=== PATIENT | male | born 1980 | race Caucasian/White ===

== ENCOUNTER → 2017-01-26 13:45 | Outpatient (CLI) | payer MEDICAID ==
[2014-10-21 03:35] VITALS: BMI 32.1
[~2017-01-26 13:45] MED LIST: AMBIEN10 MG PO; DILAUDID4 MG PO; ECOTRIN325 MG PO; ZOLOFT50 MG PO
[2017-01-26 14:12] LABS: WBC 9.7 10x3/uL (4.8-10.8)
[2017-01-26 15:54] LABS: ERYTHROCYTE SEDIMENTATION RATE 15 mm/hr (0-15)
== END | disposition home or self-care (01) ==
LOC: D.LABREF 13:45
PROVIDERS: Orthopaedic Surgery
DX: T81.4XXA Infection following a procedure, initial encounter (principal); L02.818 Cutaneous abscess of other sites

== ENCOUNTER → 2017-02-21 20:20 | Outpatient (CLI) | payer MEDICAID ==
[2014-10-21 03:35] VITALS: BMI 32.1
[2017-02-21 22:44] LABS: BASOPHILS 0.6 % (0-2); EOSINOPHILS 5.3 % (0-7); HEMATOCRIT 44.1 % (42.0-54.0); HEMOGLOBIN 14.5 g/dL (13.5-17.5); IMMATURE GRANULOCYTES 0.1 % (0-5); LYMPHOCYTES 34.5 % (15-50); MCH 34.2 pg (26.0-34.0); MCHC 32.9 g/dL (31.0-37.0); MONOCYTES 8.6 % (2-11); NEUTROPHILS 50.9 % (40-80); RBC 4.24 10x6/uL (4.20-6.10); RDW 12.8 % (11.5-14.5); WBC 9.5 10x3/uL (4.8-10.8)
[2017-02-21 22:47] LABS: PLATELET COUNT 213 10x3/uL (130-400)
[2017-02-21 22:57] LABS: ALBUMIN 3.4 g/dL (3.4-5.0); BILIRUBIN - DIRECT 0.11 mg/dL (0.00-0.30); BILIRUBIN - INDIRECT 0.33 mg/dL (0.00-1.00); BILIRUBIN - TOTAL 0.44 mg/dL (0.2-1.3); CREATININE - SERUM 0.7 mg/dL (0.6-1.3); PROTEIN - SERUM 6.7 g/dL (6.4-8.2)
== END | disposition home or self-care (01) ==
LOC: D.LABREF 20:20
PROVIDERS: Internal Medicine Infectious Disease
DX: Z79.2 Long term (current) use of antibiotics (principal)

== ENCOUNTER → 2017-02-28 14:44 | Outpatient (CLI) | payer MEDICAID ==
[2014-10-21 03:35] VITALS: BMI 32.1
[2017-02-28 15:07] LABS: BASOPHILS 0.6 % (0-2); EOSINOPHILS 3.9 % (0-7); HEMATOCRIT 44.1 % (42.0-54.0); HEMOGLOBIN 15.1 g/dL (13.5-17.5); IMMATURE GRANULOCYTES 0.2 % (0-5); LYMPHOCYTES 29.4 % (15-50); MCH 34.2 pg (26.0-34.0); MCHC 34.2 g/dL (31.0-37.0); MEAN PLATELET VOLUME 10.9 fL (7.4-10.4); MONOCYTES 7.6 % (2-11); NEUTROPHILS 58.3 % (40-80); PLATELET COUNT 221 10x3/uL (130-400); RBC 4.41 10x6/uL (4.20-6.10); RDW 12.4 % (11.5-14.5); WBC 12.5 10x3/uL (4.8-10.8)
[2017-02-28 15:31] LABS: ALBUMIN 3.8 g/dL (3.4-5.0); ALKALINE PHOSPHATASE 90 U/L (46-116); ALT (SGPT) 35 U/L (10-68); BILIRUBIN - INDIRECT 0.59 mg/dL (0.00-1.00); BILIRUBIN - TOTAL 0.79 mg/dL (0.2-1.3); CALC OSMOLALITY 274 mosm/kg (275-300); CALCIUM 9.5 mg/dL (8.5-10.1); CARBON DIOXIDE 27.8 mmol/L (21.0-32.0); CHLORIDE - SERUM 102 mmol/L (98-107); CREATININE - SERUM 0.7 mg/dL (0.6-1.3); PROTEIN - SERUM 7.4 g/dL (6.4-8.2); SODIUM 140 mmol/L (136-145); UREA NITROGEN 8 mg/dL (7-18); eGFR NON AFRICAN AMERICAN > 90 mL/min (90-120)
[2017-02-28 15:34] LABS: GLUCOSE 55 mg/dL (74-106)
== END | disposition home or self-care (01) ==
LOC: D.LABREF 14:44
PROVIDERS: Internal Medicine Infectious Disease
DX: Z51.81 Encounter for therapeutic drug level monitoring (principal); Z79.2 Long term (current) use of antibiotics; L03.119 Cellulitis of unspecified part of limb

== ENCOUNTER → 2017-03-07 13:00 | Outpatient (CLI) | payer MEDICAID ==
[2014-10-21 03:35] VITALS: BMI 32.1
[2017-03-07 14:01] LABS: BASOPHILS 0.5 % (0-2); EOSINOPHILS 6.2 % (0-7); HEMATOCRIT 44.3 % (42.0-54.0); IMMATURE GRANULOCYTES 0.2 % (0-5); LYMPHOCYTES 37.4 % (15-50); MCH 34.2 pg (26.0-34.0); MCHC 33.9 g/dL (31.0-37.0); MCV 100.9 fL (80.0-100.0); MEAN PLATELET VOLUME 11.3 fL (7.4-10.4); MONOCYTES 7.9 % (2-11); NEUTROPHILS 47.8 % (40-80); PLATELET COUNT 246 10x3/uL (130-400); RBC 4.39 10x6/uL (4.20-6.10); RDW 12.2 % (11.5-14.5); WBC 8.1 10x3/uL (4.8-10.8)
[2017-03-07 14:10] LABS: ALBUMIN 3.5 g/dL (3.4-5.0); BILIRUBIN - DIRECT 0.14 mg/dL (0.00-0.30); BILIRUBIN - INDIRECT 0.61 mg/dL (0.00-1.00); BILIRUBIN - TOTAL 0.75 mg/dL (0.2-1.3); CREATININE - SERUM 0.6 mg/dL (0.6-1.3); PROTEIN - SERUM 6.9 g/dL (6.4-8.2)
== END | disposition home or self-care (01) ==
LOC: D.LABREF 13:00
PROVIDERS: Internal Medicine Infectious Disease
DX: Z51.81 Encounter for therapeutic drug level monitoring (principal); Z79.2 Long term (current) use of antibiotics; M86.8X6 Other osteomyelitis, lower leg

== ENCOUNTER → 2017-03-14 13:02 | Outpatient (CLI) | payer MEDICAID ==
[2014-10-21 03:35] VITALS: BMI 32.1
[2017-03-14 13:51] LABS: BASOPHILS 0.6 % (0-2); EOSINOPHILS 5.3 % (0-7); HEMATOCRIT 43.5 % (42.0-54.0); HEMOGLOBIN 14.9 g/dL (13.5-17.5); IMMATURE GRANULOCYTES 0.3 % (0-5); MCH 34.2 pg (26.0-34.0); MCHC 34.3 g/dL (31.0-37.0); MCV 99.8 fL (80.0-100.0); MEAN PLATELET VOLUME 10.9 fL (7.4-10.4); MONOCYTES 9.9 % (2-11); NEUTROPHILS 36.9 % (40-80); RBC 4.36 10x6/uL (4.20-6.10); RDW 12.5 % (11.5-14.5); WBC 6.7 10x3/uL (4.8-10.8)
[2017-03-14 13:54] LABS: PLATELET COUNT 192 10x3/uL (130-400)
[2017-03-14 13:57] LABS: ALBUMIN 3.6 g/dL (3.4-5.0); BILIRUBIN - DIRECT 0.21 mg/dL (0.00-0.30); BILIRUBIN - INDIRECT 1.03 mg/dL (0.00-1.00); BILIRUBIN - TOTAL 1.24 mg/dL (0.2-1.3); CREATININE - SERUM 0.7 mg/dL (0.6-1.3); PROTEIN - SERUM 6.9 g/dL (6.4-8.2)
== END | disposition home or self-care (01) ==
LOC: D.LABREF 13:02
PROVIDERS: Internal Medicine Infectious Disease
DX: T84.625A Infection and inflammatory reaction due to internal fixation device of left fibula, initial encounter (principal); Z79.2 Long term (current) use of antibiotics

== ENCOUNTER → 2017-03-21 14:12 | Outpatient (CLI) | payer MEDICAID ==
[2014-10-21 03:35] VITALS: BMI 32.1
[2017-03-21 16:38] LABS: BASOPHILS 0.6 % (0-2); EOSINOPHILS 5.1 % (0-7); HEMATOCRIT 44.2 % (42.0-54.0); HEMOGLOBIN 15.1 g/dL (13.5-17.5); IMMATURE GRANULOCYTES 0.1 % (0-5); LYMPHOCYTES 43.6 % (15-50); MCH 34.6 pg (26.0-34.0); MCHC 34.2 g/dL (31.0-37.0); MCV 101.1 fL (80.0-100.0); MEAN PLATELET VOLUME 11.9 fL (7.4-10.4); MONOCYTES 9.3 % (2-11); NEUTROPHILS 41.3 % (40-80); PLATELET COUNT 179 10x3/uL (130-400); RBC 4.37 10x6/uL (4.20-6.10); RDW 12.8 % (11.5-14.5); WBC 6.9 10x3/uL (4.8-10.8)
[2017-03-21 17:07] LABS: ALBUMIN 3.6 g/dL (3.4-5.0); BILIRUBIN - DIRECT 0.1 mg/dL (0.00-0.30); BILIRUBIN - INDIRECT 0.6 mg/dL (0.00-1.00); BILIRUBIN - TOTAL 0.7 mg/dL (0.2-1.3); CREATININE - SERUM 0.7 mg/dL (0.6-1.3); PROTEIN - SERUM 6.4 g/dL (6.4-8.2)
== END | disposition home or self-care (01) ==
LOC: D.LABREF 14:12
PROVIDERS: Internal Medicine Infectious Disease
DX: Z51.81 Encounter for therapeutic drug level monitoring (principal); Z79.2 Long term (current) use of antibiotics